=== PATIENT | male | born 1985 | race Two or more races ===

== ENCOUNTER 2018-02-10 14:10 | Emergency (ER) | payer OTHER ==
[~2018-02-10] VITALS: Ht 165.1 cm; Wt 61.2 kg
[2018-02-10 14:17] VITALS: BP 140/77
== END 2018-02-10 17:03 | disposition home or self-care (01) ==
LOC: EDBD 14:17 → ER 14:17
DX: S29.012A Strain of muscle and tendon of back wall of thorax, initial encounter (principal); F10.10 Alcohol abuse, uncomplicated; X58.XXXA Exposure to other specified factors, initial encounter; Y90.9 Presence of alcohol in blood, level not specified; Y93.89 Activity, other specified; Y92.89 Other specified places as the place of occurrence of the external cause; Y99.8 Other external cause status
CPT/HCPCS: 72128; 99284; A4606; Z7610